=== PATIENT | female | born 1935 ===

== ENCOUNTER 2020-05-11 08:44 | Outpatient (CLI) | payer MEDICARE ==
--- NOTE | 2020-05-11 11:35 | ULT ---
ABDOMINAL ULTRASOUND: DATE: 05/11/2020. PROVIDED CLINICAL HISTORY: Thrombocytopenia. FINDINGS: The visualized abdominal aorta, IVC, and pancreas appear normal. The liver demonstrates no evidence for mass or intrahepatic biliary ductal dilatation. The common du ct is not dilated. The gallbladder is not visualized. The kidneys demonstrate no hydronephrosis or mass. The spleen is not enlarged and demonstrates no fo alla abnormality. Splenic measurements are 8.7 x 2.6 x 2.65 cm. IMPRESSION: No evidence for an acute process. Nonvisualization of the gallbladder. POS: [facility]
== END 2020-05-11 08:45 | disposition home or self-care (01) ==
LOC: BICULT 08:44
PROVIDERS: ATTEND Internal Medicine Hematology & Oncology
DX: D69.59 Other secondary thrombocytopenia (principal)
CPT/HCPCS: 93975